=== PATIENT | male | born 1960 | race Caucasian/White ===

== ENCOUNTER 2016-07-31 08:39 | Inpatient (IN) | payer MEDICARE, OTHER ==
[2016-07-31] MEDS ORDERED: NITROGLYCERIN OINT 1 INCH/GM PACKET TOPICAL STA (08:45)
[2016-07-31] MEDS ORDERED: HEPARIN SODIUM,PORCINE 5,000 UNIT/ML 1 ML VIAL IV STA (08:45)
[2016-07-31] MEDS ORDERED: HEPARIN SODIUM,PORCINE/D5W PMX 25,000 UNIT in DEXTROSE/WATER 1 500ML.BAG IV STA (08:45)
--- NOTE | 2016-07-31 08:53 | ED ---
Chest Pain HPI - General Stated Complaint: Chest Pain Time Seen by Provider: 07/31/16 08:39 Source: patient, RN notes reviewed - History of Present Illness Initial Comments: This is a 56-year-old male with a history of cardiac disease and COPD/emphysema he states he had stents placed along time ago who had the onset this morning of a burning retrosternal chest pain or radiated to his jaw down his left arm. He states it was 7/10 in severity initially he was given nitroglycerin by EMS and did resolve the pain. Also he's had shortness of breath for about a week. He is still a smoker. We did have a long conversation regarding this. MD Complaint: chest pain, other - Related Data Home Medications Medication Instructions Recorded Confirmed Acetaminophen Tab [Tylenol] 325 mg PO DAILY PRN 09/04/15 07/31/16 Aspirin 650 mg PO DAILY PRN 07/31/16 07/31/16 Loratadine [Claritin] 10 mg PO DAILY 07/31/16 07/31/16 guaiFENesin SYRUP 100MG/5ML 300 mg PO DAILY PRN 07/31/16 07/31/16 [Robitussin] Allergies Allergy/AdvReac Type Severity Reaction Status Date / Time latex Allergy Itching Verified 07/31/16 09:31 morphine Allergy Anaphylaxis Verified 07/31/16 09:31 Review of Systems ROS Statement: Those systems with pertinent positive or pertinent negative responses have been documented in the HPI. ROS Other: All systems not noted in ROS Statement are negative. EKG Findings - EKG Results: EKG: interpreted by SMITA, sinus rhythm (Sinus rhythm with a rate of 75 NV interval 142 QRS duration 70 QT/QTC of 370/524 low-voltage criteria evidence a left anterior fascicular block.) Past Medical History Past Medical History: Coronary Artery Disease (CAD), Chest Pain / Angina, Diabetes Mellitus, Hyperlipidemia, Myocardial Infarction ([place]) Last Myocardial Infarction Date:: 2012 History of Any Multi-Drug Resistant Organisms: MRSA Date of last positivie culture/infection: 2012 MDRO Source:: right leg Past Surgical History: Heart Catheterization With Stent, Orthopedic Surgery Additional Past Surgical History / Comment(s): R foot sx Past Anesthesia/Blood Transfusion Reactions: No Reported Reaction Date of Last Stent Placement:: 2012 Past Psychological History: No Psychological Hx Reported Smoking Status: Current every day smoker Past Alcohol Use History: Occasional Past Drug Use History: Marijuana General Exam - General Exam Comments Initial Comments: This is a well-developed well-nourished awake alert oriented 3 male General appearance: alert, in no apparent distress Head exam: Present: atraumatic, normocephalic, normal inspection Eye exam: Present: normal appearance, PERRL, EOMI. Absent: scleral icterus, conjunctival injection, periorbital swelling ENT exam: Present: normal exam, mucous membranes moist Neck exam: Present: normal inspection. Absent: tenderness, meningismus, lymphadenopathy Respiratory exam: Present: decreased breath sounds. Absent: respiratory distress, wheezes, rales, rhonchi, stridor Cardiovascular Exam: Present: regular rate, normal rhythm, normal heart sounds. Absent: systolic murmur, diastolic murmur, rubs, gallop, clicks GI/Abdominal exam: Present: soft, normal bowel sounds. Absent: distended, tenderness, guarding, rebound, rigid Extremities exam: Present: normal inspection, full ROM, normal capillary refill. Absent: tenderness, pedal edema, joint swelling, calf tenderness Back exam: Present: normal inspection Neurological exam: Present: alert, oriented X3, CN II-XII intact Psychiatric exam: Present: normal affect, normal mood Skin exam: Present: warm, dry, intact, normal color. Absent: rash Course Vital Signs 07/31/16 07/31/16 07/31/16 08:50 09:29 09:40 Temperature 97.6 F Pulse Rate 78 69 Respiratory 16 18 18 Rate Blood Pressure 157/89 139/77 O2 Sat by Pulse 96 93 L Oximetry 07/31/16 11:12 Temperature Pulse Rate 78 Respiratory 16 Rate Blood Pressure 148/90 O2 Sat by Pulse 96 Oximetry Chest Pain MDM - MDM X-ray was unremarkable I did discuss findings with the patient he's been pain- free since arrival. He will be admitted for evaluation for unstable angina does have elevation of his troponin. Critical Care Time Critical Care Time: Yes Critical Care Time: 31 minutes of critical care time which includes initial presentation with history physical lab and x-rays reevaluation the patient to responsive therapy. Discussed with the admitting physician documentation of the above admission orders. Disposition Clinical Impression: Unstable angina pectoris, Chest pain, Elevated troponin Disposition: ADMITTED IP TO THIS [facility] Condition: Stable
[2016-07-31 09:27] LABS: Basophils # (A) 0.1 k/uL (0-0.2); Basophils % (A) 1 %; CH 28.7; CHCM 33.5; Eosinophils # (A) 0.1 k/uL (0-0.7); Eosinophils % (A) 1 %; HCT 49.6 % (39.0-53.0); HDW 2.47; Luc # (Auto) 0.09; Luc % (Auto) 1; Lymphocytes # (A) 3.1 k/uL (1.0-4.8); Lymphocytes % (A) 21 %; MCH 27.7 pg (25.0-35.0); MCHC 32.2 g/dL (31.0-37.0); MCV 85.9 fL (80.0-100.0); Mean Platelet Volume 10.5; Monocytes % (A) 7 %; Neutrophils # (A) 10.4 k/uL (1.3-7.7); Neutrophils % (A) 70 %; RBC 5.77 m/uL (4.30-5.90); RDW 12.9 % (11.5-15.5); WBC 14.7 k/uL (3.8-10.6); WBC (Perox) 14.55
[2016-07-31 09:36] LABS: ALT 36 U/L (21-72); AST 27 U/L (17-59); Alkaline Phosphatase 89 U/L (38-126); Anion Gap 12 mmol/L; Blood Urea Nitrogen 13 mg/dL (9-20); Calcium 8.8 mg/dL (8.4-10.2); Carbon Dioxide 20 mmol/L (22-30); Chloride 108 mmol/L (98-107); Glucose 138 mg/dL (74-99); Magnesium 1.8 mg/dL (1.6-2.3); Non-African American GFR(MDRD) >60 (>60 ml/min/1.73 sqM); Sodium 140 mmol/L (137-145); Total Bilirubin 0.8 mg/dL (0.2-1.3); Total Protein 6.7 g/dL (6.3-8.2)
[2016-07-31 09:39] LABS: Potassium 5.3 mmol/L (3.5-5.1)
--- NOTE | 2016-07-31 09:40 | XR ---
EXAMINATION TYPE: XR chest 2V DATE OF EXAM: 07/31/2016 9:23 AM COMPARISON: Prior chest x-ray 27 August 2015 HISTORY: Chest pain, coronary artery disease TECHNIQUE: Frontal and lateral views of the chest are obtained. FINDINGS: There is no focal air space opacity, pleural effusion, or pneumothorax seen. The cardiac silhouette size is within normal limits. There are overlying cardiac leads. Dominant lung volumes hood ggest underlying COPD. Minimal strand-like densities at the lung bases are present. The osseous struc tures are intact. IMPRESSION: There may be some basilar atelectasis or scarring. Follow-up as indicated.
[2016-07-31 10:03] LABS: Creatine Kinase MB 2.2 ng/mL (0.0-2.4)
[2016-07-31] MEDS: HEPARIN SODIUM,PORCINE/D5W PMX 25,000 UNIT in DEXTROSE/WATER 1 500ML.BAG IV SCH (10:07)
[2016-07-31 10:31] LABS: Troponin I 0.038 ng/mL (0.000-0.034)
[2016-07-31 10:40] LABS: INR 1.1 (<1.1); Prothrombin Time 10.8 sec (9.0-12.0)
[2016-07-31 10:41] LABS: Partial Thromboplastin Time 21.6 sec (22.0-30.0)
[2016-07-31] MEDS ORDERED: NITROGLYCERIN SL TABS 0.4 MG TAB SUBLINGUAL PRN (11:46)
[2016-07-31] MEDS ORDERED: ACETAMINOPHEN TAB 325 MG TAB PO PRN (11:48)
[2016-07-31 15:47] LABS: Creatine Kinase MB 2.4 ng/mL (0.0-2.4)
[2016-07-31 16:02] LABS: Troponin I 0.095 ng/mL (0.000-0.034)
[2016-07-31] MEDS: NITROGLYCERIN OINT 1 INCH/GM PACKET TOPICAL SCH ×2 (17:34→23:58)
[2016-07-31] MEDS: HEPARIN SODIUM,PORCINE 5,000 UNIT/ML 1 ML VIAL IV PRN (19:19)
[2016-07-31 22:13] LABS: Creatine Kinase MB 2.4 ng/mL (0.0-2.4)
[2016-07-31 22:25] LABS: Troponin I 0.116 ng/mL (0.000-0.034)
[2016-07-31] MEDS: NICOTINE 21MG/24HR PATCH TRANSDERM SCH (23:48)
[2016-07-31] MEDS: METOPROLOL TARTRATE 12.5 MG TAB PO SCH (23:58)
[2016-08-01] MEDS: HEPARIN SODIUM,PORCINE 5,000 UNIT/ML 1 ML VIAL IV PRN ×2 (02:04→09:05)
[2016-08-01] MEDS: HEPARIN SODIUM,PORCINE/D5W PMX 25,000 UNIT in DEXTROSE/WATER 1 500ML.BAG IV SCH (05:20)
[2016-08-01] MEDS: NITROGLYCERIN OINT 1 INCH/GM PACKET TOPICAL SCH ×2 (06:08→19:34)
[2016-08-01] MEDS: IPRATROPIUM-ALBUTEROL 3 ML NEB INHALATION SCH ×4 (08:25→20:22)
[2016-08-01 08:50] LABS: Cholesterol 221 mg/dL (<200); HDL Cholesterol 35 mg/dL (40-60); Triglycerides 174 mg/dL (<150)
[2016-08-01] MEDS ORDERED: ASPIRIN 325 MG TAB PO SCH (09:00)
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
[2016-08-01 09:36] LABS: Hemoglobin A1C 6.9 % (4.2-6.1)
[2016-08-01] MEDS: NICOTINE 21MG/24HR PATCH TRANSDERM SCH (09:36)
[2016-08-01] MEDS: LORATADINE 10 MG TAB PO SCH (09:55)
[2016-08-01] MEDS: ATORVASTATIN 80 MG TAB PO SCH (09:55)
[2016-08-01] MEDS ORDERED: NITROGLYCERIN SL TABS 0.4 MG TAB SUBLINGUAL PRN ×2 (10:05→12:18)
[2016-08-01] MEDS ORDERED: ASPIRIN 325 MG TAB PO STA (10:05)
[2016-08-01] MEDS ORDERED: ALPRAZolam 0.5 MG TAB PO PRN (10:05)
[2016-08-01] MEDS ORDERED: SODIUM CHLORIDE 0.9% 1,000 ML in EMPTY BAG 1 BAG IV ONE (10:05)
[2016-08-01] MEDS ORDERED: ATORVASTATIN 80 MG TAB PO STA (10:05)
[2016-08-01] MEDS ORDERED: ALPRAZolam 0.25 MG TAB PO PRN (10:05)
--- NOTE | 2016-08-01 10:20 | HP ---
DATE OF ADMISSION: 07/31/2016 PRESENTING COMPLAINT: Chest pain. HISTORY OF PRESENTING COMPLAINT: This is a 56-year-old patient of Dr. King, known history of coronary artery disease with stent in 2013. Patient's other chronic stable medical conditions include hypertension, diabetes, hyperlipidemia, COPD, GERD, osteoarthritis. Patient has sleep apnea, does not use a CPAP machine. Patient this morning started off with chest pressure in the center of the chest going down the left neck and arm, was not dizzy. Patient broke out in a cold sweat, really felt tired. Patient's pain lasted for over 90 minutes and nitroglycerin was given, after which he felt better. Troponin started to creep up. Patient admitted with IV heparin on board. REVIEW OF SYSTEMS: CONSTITUTIONAL: Tired. HEENT: None. RESPIRATORY: Occasional wheezing. CARDIOVASCULAR: As above. GASTROINTESTINAL: Heartburn. GENITOURINARY: None. MUSCULOSKELETAL: Aches and pains in the joints. DERMATOLOGICAL: None. HEMATOLOGICAL: None. LYMPHATICS: None. PSYCHIATRY: None. NEUROLOGICAL: None. Past medical history of coronary disease with stent in 2013, hyperlipidemia, diabetes, hypertension, COPD, GERD, osteoarthritis, obstructive sleep apnea, cluster headaches, chronic back pain, migraines. PAST SURGICAL HISTORY: Cardiac cath with stent. Patient had stents to the RCA and LAD. Right heel and ankle surgery, fracture unknown bone from right hip. SOCIAL HISTORY: The patient lives with 3 children. Patient smokes close to a pack a day since age 5. That is about 50 years. Drinks alcohol daily less, but less than 14 drinks per week. Patient does medical marijuana occasionally. FAMILY HISTORY: Father of a heart attack at age of 41. HOME MEDICATIONS: 1. Claritin 10 mg a day. 2. Aspirin 650 mg p.o. daily p.r.n. 3. Tylenol. ALLERGIES TO LATEX, AND MORPHINE. On examination, temperature 97.6, pulse 98, respirations 16, blood pressure 157/ 89, pulse ox 96% on room air. GENERAL APPEARANCE: Morbidly obese; BMI of 41.5, sitting up in a chair. EYES: Pupils equal. Conjunctivae normal. HEENT: Oral cavity normal. NECK: JVP not raised. Mass not palpable. RESPIRATORY: Effort normal. LUNGS: Diminished breath sounds. CARDIOVASCULAR: First and second sounds normal. No edema. ABDOMEN: Some, nontender. Liver, spleen not palpable. LYMPHATIC: No lymph nodes palpable in neck or axillae. PSYCHIATRY: Alert and oriented x3. Mood and affect normal. NEUROLOGICAL: Pupils are equal. Cranial nerves intact. Power and sensation grossly intact. INVESTIGATIONS: White count 14.7, hemoglobin 16, platelets 72. Potassium 5.3, BUN 30, creatinine 0.71. Troponin 0.038, 0.095, 0.116. Chest x-ray: Some atelectasis reported. EKG: Low-voltage nonspecific findings. ASSESSMENT: 1. Acute non-Q-wave myocardial infarction in a patient with known coronary artery disease, a rather classic presentation and a rise in troponin in a patient who continues to smoke with a prior history of coronary artery disease. 2. Known coronary artery disease with prior stents in 2013. 3. Essential hypertension, uncontrolled. 4. Hyperlipidemia. 5. Chronic obstructive pulmonary disease in a current smoker. 6. Chronic nicotine dependence. Patient is a smoker. 7. Gastroesophageal reflux disease. 8. Primary osteoarthritis of multiple joints, including lower back. 9. Obstructive sleep apnea. The patient does not use a continuous positive airway pressure machine. PLAN: Patient continued on aspirin, IV heparin, a small dose of beta eli, including nitro paste. Nebulized bronchodilators given. The patient advised against smoking, given a given a nicotine patch. Patient should see a dietitian too for the same. Will check patient's lipid profile in the morning and start the patient on Lipitor. Care was discussed with the patient and Cardiology is consulted.
[2016-08-01] MEDS ORDERED: diphenhydrAMINE 50 MG/ML 1 ML VIAL ONE (10:32)
[2016-08-01] MEDS ORDERED: MIDAZOLAM 2 MG/2 ML VIAL ONE (10:32)
[2016-08-01] MEDS ORDERED: LIDOCAINE 2% INJ 20 MG/ML (20 ML MDV) ONE (10:39)
[2016-08-01] MEDS ORDERED: SODIUM CHLORIDE 0.9% (PF) 10 ML VIAL ONE (10:39)
[2016-08-01] MEDS ORDERED: VERAPAMIL 2.5 MG/ML 2 ML AMP ONE (10:39)
[2016-08-01] MEDS ORDERED: SODIUM CHLORIDE 0.9% 1,000 ML IV ONE (10:45)
[2016-08-01] MEDS ORDERED: SODIUM CHLORIDE 0.9% 500 ML IV ONE (10:45)
[2016-08-01] MEDS ORDERED: HEPARIN SODIUM 1,000 UNIT/ML VIAL ONE (11:04)
[2016-08-01] MEDS ORDERED: diphenhydrAMINE 50 MG/ML 1 ML VIAL IVP ONE (11:11)
[2016-08-01] MEDS: MIDAZOLAM 2 MG/2 ML VIAL IV ONE ×2 (11:11→11:29)
[2016-08-01] MEDS ORDERED: NITROGLYCERIN SL TABS 0.4 MG TAB SUBLINGUAL ONE ×4 (11:12→11:18)
[2016-08-01] MEDS ORDERED: LIDOCAINE 2% INJ 20 MG/ML SQ ONE ×2 (11:15→11:28)
--- NOTE | 2016-08-01 11:23 | ECHOF ---
Referral Reason:nonstemi MEASUREMENTS -------- HEIGHT: 170.2 cm WEIGHT: 123.4 kg BP: 130/73 RVIDd: 3.2 cm (< 3.3) IVSd: 1.5 cm (0.6 - 1.1) LVIDd: 4.3 cm (3.9 - 5.3) LVPWd: 1.5 cm (0.6 - 1.1) IVSs: 2.1 cm LVIDs: 3.3 cm LVPWs: 2.1 cm LA Diam: 3.7 cm (2.7 - 3.8) LAESV Index (A-L): 22.36 ml/m Ao Diam: 3.3 cm (2.0 - 3.7) AV Cusp: 2.0 cm (1.5 - 2.6) MV EXCURSION: 14.924 mm (> 18.000) MV EF SLOPE: 81 mm/s (70 - 150) EPSS: 1.6 cm MV E Randy: 0.97 m/s MV DecT: 172 ms MV A Randy: 1.02 m/s MV E/A Ratio: 0.95 FINDINGS -------- Sinus rhythm with extra systolic beats. This was a technically adequate study. The left ventricular size is normal. There is moderate concentric left ventricular hypertrophy. Overall left ventricular systolic function is mild-moderately impaired with, an EF between 40 - 45 %. Basal lateral LV wall motion is hypokinetic. Basal inferior LV wall motion is hypokinetic. Mid lateral LV wall motion is hypokinetic. Mid inferior LV wall motion is hypokinetic. The right ventricle is normal in size and function. The left atrium is normal in size. Normal LA size by volume 22+/-6 ml/m2. The right atrium is normal in size. 1.5mg of Definity was utilized for enhancement of images The aortic valve was not well visualized. Normal appearing mitral valve. No mitral regurgitation. The tricuspid valve appears structurally normal. No regurgitation noted The pulmonic valve was not well visualized. The aortic root size is normal. There is no pericardial effusion. CONCLUSIONS -------- 1. Sinus rhythm with extra systolic beats. 2. The right ventricle is normal in size and function. 3. The left atrium is normal in size. 4. The right atrium is normal in size. 5. 1.5mg of Definity was utilized for enhancement of images 6. The aortic valve was not well visualized. 7. Normal appearing mitral valve. 8. The tricuspid valve appears structurally normal. 9. The pulmonic valve was not well visualized. 10. The aortic root size is normal. 11. There is no pericardial effusion. 12. This was a technically adequate study. 13. The left ventricular size is normal. 14. There is moderate concentric left ventricular hypertrophy. 15. Overall left ventricular systolic function is mild-moderately impaired with, an EF between 40 - 45 %. 16. Basal lateral LV wall motion is hypokinetic. 17. Basal inferior LV wall motion is hypokinetic. 18. Mid lateral LV wall motion is hypokinetic. 19. Mid inferior LV wall motion is hypokinetic. C [employer] DEVELOPER: Mayela Rowe RDCS
[2016-08-01] MEDS ORDERED: BIVALIRUDIN BOLUS 250 MG/50 ML IV ONE (11:46)
[2016-08-01] MEDS ORDERED: BIVALIRUDIN 250 MG in SODIUM CHLORIDE 0.9% 50 ML IV ONE (11:48)
[2016-08-01] MEDS ORDERED: PRASUGREL 10 MG TAB ONE (11:51)
[2016-08-01] MEDS ORDERED: NITROGLYCERIN 1000MCG/10ML SYRINGE INTRACORON ONE (11:55)
[2016-08-01] MEDS ORDERED: IOHEXOL 350 MG/ML 100 ML BOTTLE INTRATHECA ONE ×2 (11:56)
[2016-08-01] MEDS ORDERED: HYDROmorphone 2 MG/ML 1 ML SYRINGE ONE (11:58)
[2016-08-01] MEDS ORDERED: HYDROmorphone 2 MG/ML 1 ML SYRINGE IV ONE (12:01)
[2016-08-01] MEDS ORDERED: PRASUGREL 10 MG TAB PO ONE (12:02)
[2016-08-01] MEDS ORDERED: MAG HYDROX/AL HYDROX/SIMETH 30 ML CUP PO PRN (12:18)
[2016-08-01] MEDS ORDERED: ZOLPIDEM 5 MG TAB PO PRN (12:18)
[2016-08-01] MEDS ORDERED: ATROPINE SULFATE 0.1 MG/ML 10ML SYRINGE IV PRN (12:18)
[2016-08-01] MEDS ORDERED: RX INFO: IV CONTRAST WAS GIVEN 1 EACH MISC MISCELLANE PRN (12:18)
[2016-08-01] MEDS: SODIUM CHLORIDE 0.9% 1,000 ML IV SCH ×2 (12:51→23:07)
--- NOTE | 2016-08-01 17:01 | PN ---
DATE OF SERVICE: 08/01/2016 PRESENTING COMPLAINT: Chest pain. INTERVAL HISTORY: This is a patient who presented with acute non-Q-wave MD with known coronary artery disease. Patient did come for a cardiac catheterization today. ( ) stent was carried out. I do not have a full dictation. The patient lying in bed, stable. Comfortable. Review of systems done for constitutional, cardiovascular, GI, pulmonary. Current medications are reviewed. On examination, afebrile, pulse 70, respirations 16, blood pressure 140/88, pulse ox 96% on 2 liters. GENERAL APPEARANCE: Lying in bed, not in distress. EYES: Pupils equal. Conjunctivae normal. NECK: JVD not raised. Mass not palpable. RESPIRATORY: Effort normal. LUNGS: Diminished breath sounds. CARDIOVASCULAR: First and second sounds normal. No edema. ABDOMEN: Soft. Liver and spleen not palpable. Psychiatric alert and oriented x3. Mood, affect normal. INVESTIGATIONS: LDL 151, Troponin 0.095, 0.116. ASSESSMENT: 1. Acute non-Q-wave myocardial infarction in a patient with known coronary artery disease, cardiac catheterization and stent this morning details and dictation pending. 2. Coronary artery disease with prior stent in 2013. 3. Essential hypertension, uncontrolled. 4. Hyperlipidemia. 5. Chronic obstructive pulmonary disease in a current smoker. 6. Hyperlipidemia uncontrolled. 7. Chronic nicotine dependence. Patient is a smoker. 8. Gastroesophageal reflux disease. 9. Primary osteoarthritis in multiple joints, including lower back. 10. Obstructive sleep apnea. The patient does not use CPAP. PLAN: Care was discussed with the patient again, reiterated for smoking cessation. Patient already put on Lipitor. Follow.
[2016-08-01] MEDS: METOPROLOL TARTRATE 12.5 MG TAB PO SCH (19:34)
--- NOTE | 2016-08-01 20:15 | CC ---
DATE OF SERVICE: 08/01/2016. PROCEDURE: Left heart catheterization and coronary angiography. PERFORMED BY: Dr. Jarrett Hanna. CLINICAL INFORMATION: Mr. Isaak York is a 56-year-old gentleman with a known history of type 2 diabetes, hypertension, hyperlipidemia who underwent stenting of a proximal and mid LAD performed by me in 2013. Because of symptoms of angina, he presented to the hospital, had a mild troponin elevation, was advised cardiac catheterization after evaluation by Dr. Barnhart. PROCEDURE NOTE: Under local anesthesia and strict aseptic precautions, I attempted to obtain access from the right radial but the pulse was somewhat deep and I had difficulty. Therefore I switched over to the right femoral approach. A 6 Pashto introducer was placed in the right femoral artery under strict aseptic precautions and local anesthesia. A standard Braden catheters were used to perform coronary angiography and a pigtail catheter was used to check pressures but LV gram was not performed. This patient is known to have total occlusion of circumflex and previously stented proximal right coronary artery and also proximal and mid LAD. Following the coronary angiography, I proceeded with intervention of the RCA, which had a restenotic lesion as well as lesion beyond the stented segment. CARDIAC CATHETERIZATION FINDINGS: The left ventricle end-diastolic pressure was 21 mmHg without any gradient across the aortic valve. CORONARY ANGIOGRAPHIC FINDINGS: RIGHT CORONARY ARTERY: Technically a very dominant vessel that was stented in the past at [facility]. This patient now has a restenosis in the distal aspect of the stent of 80% and also beyond it, there is another area stenosis of another 80%. The stenosis therefore starts within the stent and extends beyond the stent distally. The RCA is very dominant bifurcates into a large PLV and PDA both of which have minor irregularities. There is an acute marginal which is highly diseased and has intrinsic lesion and it comes from the distal end of the lesion. This vessel is highly diseased. LEFT MAIN CORONARY ARTERY: This is a short, patent, disease-free vessel that bifurcates into LAD and circumflex. LEFT ANTERIOR DESCENDING CORONARY ARTERY: Good caliber vessel extends along the anterior wall. The stented segment before and after the diagonal is widely patent and the diagonal is free of significant disease. LAD extends all the way to the apex supplying a sizable amount of myocardium. LEFT POSTERIOR CIRCUMFLEX CORONARY ARTERY CORONARY ARTERY: Technically nondominant vessel totally occluded in the proximal portion with limited antegrade flow. Angiographic appearance is similar to the previous study from 2014. LEFT VENTRICULOGRAM: This was not performed. FINAL IMPRESSION: This patient has a total occlusion of circumflex, which is old and now has a recent fresh restenotic lesion within the RCA, which is a culprit lesion. LAD that was stented in 2014 is widely patent. Filling pressures are elevated. LV gram was not performed. RECOMMENDATIONS: Recommend intervention of the RCA and proceeded to perform this in the same setting.
--- NOTE | 2016-08-01 20:23 | PTCA ---
DATE OF SERVICE: 08/01/2016 PROCEDURE: PTCA and stenting of proximal right coronary artery. PERFORMED BY: Dr. Jarrett Hanna DESCRIPTION OF PROCEDURE: The existing 6 Polish introducer in the right femoral artery was used to perform the procedure. A Whisper wire was used to cross the lesion. A standard right Braden guide catheter was used to cannulate the RCA. Without predilatation, a 3.25 caliber 18 mm long Xience stent was deployed at 14 atmospheres. Patient had chest pain and inferior ST elevation. The chest pain persisted. There was a transient occlusion of the side branch, which was an acute marginal branch, which was highly diseased. However, after nicardipine and nitroglycerin, there was good flow. EKG normalized and patient's chest pain resolved almost completely and he was sent to the room in stable condition. FINDINGS: Discussed with the patient and his son. I expect that he will be discharged tomorrow if he remains stable. Excellent angiographic result was achieved without complication. I used an Angioseal to secure hemostasis and he was sent to the room in stable condition.
--- NOTE | 2016-08-01 20:26 | LTR ---
August 01, 2016 RE: Isaak York Dear Dr. King: Thank you for the opportunity to participate in the care of Mr. York. I am pleased to report to you that he had a good result of a restenotic lesion in the proximal RCA. A drug-eluting stent was used. His previously stented LAD is patent and circumflex is a chronic total occlusion. Continued medical therapy with aspirin and Effient or Plavix should be done without interruption for at least one year. Thank you for the referral and please call for questions. With kindest regards, Sincerely, PAIGE CHUNG MD
[2016-08-01] MEDS: METOPROLOL TARTRATE 25 MG TAB PO SCH (20:44)
[2016-08-01 22:50] VITALS: TEMP 97.6
[2016-08-02 07:39] LABS: Basophils # (A) 0.1 k/uL (0-0.2); Basophils % (A) 1 %; CH 28.4; CHCM 32.9; Eosinophils # (A) 0.1 k/uL (0-0.7); Eosinophils % (A) 1 %; HCT 49.5 % (39.0-53.0); HGB 16.5 gm/dL (13.0-17.5); Luc # (Auto) 0.26; Luc % (Auto) 2; Lymphocytes # (A) 3.4 k/uL (1.0-4.8); Lymphocytes % (A) 25 %; MCH 28.9 pg (25.0-35.0); MCHC 33.3 g/dL (31.0-37.0); MCV 86.7 fL (80.0-100.0); Mean Platelet Volume 7.8; Monocytes # (A) 0.8 k/uL (0-1.0); Monocytes % (A) 6 %; Neutrophils # (A) 9.3 k/uL (1.3-7.7); Neutrophils % (A) 67 %; RBC 5.71 m/uL (4.30-5.90); RDW 12.7 % (11.5-15.5); WBC 13.9 k/uL (3.8-10.6); WBC (Perox) 14.36
[2016-08-02 07:48] LABS: Anion Gap 11 mmol/L; Blood Urea Nitrogen 10 mg/dL (9-20); Calcium 9.2 mg/dL (8.4-10.2); Carbon Dioxide 28 mmol/L (22-30); Chloride 102 mmol/L (98-107); Glucose 105 mg/dL (74-99); Non-African American GFR(MDRD) >60 (>60 ml/min/1.73 sqM); Potassium 4.5 mmol/L (3.5-5.1); Sodium 141 mmol/L (137-145)
[2016-08-02] MEDS: IPRATROPIUM-ALBUTEROL 3 ML NEB INHALATION SCH ×2 (08:05→12:04)
[2016-08-02] MEDS: LORATADINE 10 MG TAB PO SCH (08:45)
[2016-08-02] MEDS: ATORVASTATIN 80 MG TAB PO SCH (08:45)
[2016-08-02] MEDS: METOPROLOL TARTRATE 25 MG TAB PO SCH (08:45)
[2016-08-02] MEDS ORDERED: ASPIRIN 81 MG CHEW PO SCH (09:00)
[2016-08-02] MEDS ORDERED: PRASUGREL 10 MG TAB PO SCH (09:00)
--- NOTE | 2016-08-02 11:17 | P.PN ---
Subjective Principal diagnosis: Chest pain This is a 56-year-old gentleman with known history of coronary artery disease, prior myocardial infarction and stent placements, hypertension, hyperlipidemia, nicotine dependence, COPD, and occasional marijuana use, he presents to the hospital with symptoms of midsternal chest pressure with radiation to the jaw and left axilla area.EKG on arrival shows a normal sinus rhythm with anterior ST-T wave changes. Repeat EKG this morning shows normal sinus rhythm with nonspecific anterior ST-T wave changes. Chest x-ray shows some basilar atelectasis or scarring. Laboratory data, WBC 14.7, potassium 5.3 , BUN 13, creatinine 0.7. Troponins 0.038, 0.09, 0.11. Patient was taken to the cardiac catheterization lab yesterday where he underwent angioplasty with stenting of the right coronary artery. EKG this morning showed normal sinus rhythm with no changes from post-PCI. Patient has been up ambulating in the hallway today without any difficulty, denies any further chest discomfort. Lab data reviewed and is within normal limits. Objective - Vital Signs Vital signs: Vital Signs Temp 97.6 F 08/02/16 08:50 Pulse 75 08/02/16 08:50 Resp 16 08/02/16 08:52 BP 131/83 08/02/16 08:50 Pulse Ox 93 L 08/02/16 08:50 Intake & Output 08/01/16 08/02/16 08/02/16 18:59 06:59 18:59 Intake Total 400 675 Balance 400 675 Weight 122.5 kg Intake: IV 675 Sodium Chloride 0.9% 1, 675 000 ml @ 75 mls/hr IV . [id number] [facility] Rx#:[id number] Oral 400 Other: Voiding Method Toilet Toilet Toilet # Voids 3 - Exam PHYSICAL EXAMINATION: HEENT: Head is atraumatic, normocephalic. Pupils equal, round. Neck is supple. There is no elevated jugular venous pressure. HEART EXAMINATION: Heart S1, S2 normal. No murmur or gallop heard. CHEST EXAMINATION: Lungs are clear to auscultation and precussion. No chest wall tenderness is noted on palpation or with deep breathing. ABDOMEN: Soft, obese, nontender. Bowel sounds are heard. No organomegaly noted. Right groin soft, no evidence of any hematoma. EXTREMITIES: 2+ peripheral pulses with no evidence of peripheral edema and no calf tenderness noted. NEUROLOGIC patient is awake, alert and oriented -3. . - Labs CBC & Chem 7: 08/02/16 06:34 08/02/16 06:34 Labs: Abnormal Lab Results - Last 24 Hours (Table) 08/02/16 08/02/16 Range/Units 06:34 06:34 WBC 13.9 H (3.8-10.6) k/uL Neutrophils # 9.3 H (1.3-7.7) k/uL Glucose 105 H (74-99) mg/dL Assessment and Plan Plan: Assessment and plan #1 chest pain, suggestive of acute coronary syndrome. Status post angioplasty with stenting of the RCA #3 hypertension #4 hyperlipidemia #5 nicotine dependence #6 COPD #7 occasional marijuana use #8 recent upper respiratory infection Plan From cardiology's perspective, patient may be able to be discharged home today. We will make him a follow-up appointment with Dr. Valentine Hanna in the office on August 08. Patient will be discharged home on aspirin 81 mg daily, Lipitor 80 mg daily, metoprolol tartrate 25 mg one tablet by mouth twice a day, Effient 10 mg daily, and sublingual nitroglycerin as needed for chest pain. Prescriptions 3 to the above medications have been provided. Patient has also been educated regarding the importance of taking his medications as well as nicotine cessation. DNP note has been reviewed, I agree with a documented findings and plan of care. Patient was seen and examined.
[2016-08-02 13:31] VITALS: BP 124/80; PULSE 70; RESP 12
--- NOTE | 2016-08-03 09:27 | DS ---
DATE OF ADMISSION: 07/31/2016 DATE OF DISCHARGE: 08/02/2016 FINAL DIAGNOSES: 1. Acute non-Q-wave myocardial infarction in a patient with known coronary artery disease. 2. Coronary artery disease with prior stent in 2013. 3. Essential hypertension, uncontrolled on presentation. 4. Hyperlipidemia, uncontrolled. 5. Chronic obstructive pulmonary disease in a current smoker. 6. Chronic nicotine dependence. Patient is a smoker. Patient counseled against smoking. 7. Gastroesophageal reflux disease. 8. Primary osteoarthritis in multiple joints including lower back. 9. Obstructive sleep apnea. The patient does not use CPAP. 10. Morbid obesity, body mass index 42.3. Patient to see a dietitian as an outpatient and follow with his family doctor. 11. Ischemic cardiomyopathy; ejection fraction 40% to 45%, from underlying coronary artery disease. PROCEDURE: Cardiac catheterization by Dr. Jarrett Hanna that showed total occlusion of the circumflex, which is old and restenotic lesion within the RCA. Intervention was carried out. Patient has LAD stent from 2013 that is widely patent. Patient's 2-D echocardiogram shows EF of 40% to 45%. Patient's LDL came back to be 151. HOSPITAL COURSE: This is a patient who presented with acute non-ST elevation myocardial infarction. Cardiac cath with intervention was done as above. On the day of discharge, the patient was counseled against smoking. On exam, lungs are clear. CARDIOVASCULAR: First and second sounds normal. CONSULTATIONS: Dr. Barnhart from cardiology and Dr. Jarrett Hanna from interventional cardiology DISCHARGE MEDICATIONS: 1. Tylenol 325 p.o. daily p.r.n. 2. Claritin 10 mg p.o. daily. 3. Aspirin 81 mg daily. 4. Lipitor 80 mg p.o. daily. 5. Atrovent HFA 2 puffs q.i.d. 6. Lopressor 25 mg p.o. b.i.d. 7. Nicotine 21 mg patch. 8. Nitrostat 0.4 sublingual q.5 p.r.n. 9. Effient 10 mg p.o. daily. Follow up with Dr. Jarrett Hanna on 08/08/16 and follow up with Dr. King on 08/06/16.
== END 2016-08-02 13:51 | disposition home or self-care (01) | DRG 247 ==
LOC: EC 08:39 → 6SEL 11:48 → OBSVTOIN 08-01 15:01
PROVIDERS: ADMIT Hospitalist; ATTEND Hospitalist
PROC: B2111ZZ Fluoroscopy of Multiple Coronary Arteries using Low Osmolar Contrast (ICD-10-PCS; 2016-08-01)
PROC: 027034Z Dilation of Coronary Artery, One Artery with Drug-eluting Intraluminal Device, Percutaneous Approach (ICD-10-PCS; principal; 2016-08-01 10:40)
PROC: 4A023N7 Measurement of Cardiac Sampling and Pressure, Left Heart, Percutaneous Approach (ICD-10-PCS; 2016-08-01 10:40)
DX: I21.4 Non-ST elevation (NSTEMI) myocardial infarction (principal); J98.11 Atelectasis; I10 Essential (primary) hypertension; E11.9 Type 2 diabetes mellitus without complications; E66.01 Morbid (severe) obesity due to excess calories; E78.5 Hyperlipidemia, unspecified; F12.90 Cannabis use, unspecified, uncomplicated; F17.210 Nicotine dependence, cigarettes, uncomplicated; G47.33 Obstructive sleep apnea (adult) (pediatric); I25.2 Old myocardial infarction; I25.5 Ischemic cardiomyopathy; J44.9 Chronic obstructive pulmonary disease, unspecified; K21.9 Gastro-esophageal reflux disease without esophagitis; M15.9 Polyosteoarthritis, unspecified; G43.909 Migraine, unspecified, not intractable, without status migrainosus; G89.29 Other chronic pain; M54.9 Dorsalgia, unspecified; I25.10 Atherosclerotic heart disease of native coronary artery without angina pectoris; Z68.41 Body mass index [BMI] 40.0-44.9, adult; Z91.040 Latex allergy status; Z88.5 Allergy status to narcotic agent; Z79.82 Long term (current) use of aspirin; Z79.899 Other long term (current) drug therapy; Z95.5 Presence of coronary angioplasty implant and graft; Z82.49 Family history of ischemic heart disease and other diseases of the circulatory system; Z86.14 Personal history of Methicillin resistant Staphylococcus aureus infection
CPT/HCPCS: 36415; 71020; 80048; 80053; 80061; 82550; 82553; 83036; 83735; 83880; 84484; 85025; 85610; 85730; 93005; 93306; 93458; 94640; 96365; 96366; 96376; 99291

== ENCOUNTER 2016-12-20 19:23 | Emergency (ER) | payer MEDICARE, OTHER ==
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
[2016-12-20 21:31] VITALS: BP 133/77; PULSE 78; RESP 18; TEMP 96.6
== END 2016-12-20 21:36 | disposition home or self-care (01) ==
LOC: EC 19:23
DX: S61.012A Laceration without foreign body of left thumb without damage to nail, initial encounter (principal); F17.200 Nicotine dependence, unspecified, uncomplicated; Z79.899 Other long term (current) drug therapy; Z91.040 Latex allergy status; Z88.5 Allergy status to narcotic agent; W45.8XXA Other foreign body or object entering through skin, initial encounter
CPT/HCPCS: 12001; 99282

== ENCOUNTER 2017-12-21 13:53 | Emergency (ER) | payer MEDICARE, OTHER ==
[2017-12-21 14:00] VITALS: RESP 18
[2017-12-21 14:20] LABS: Basophils # (A) 0.1 k/uL (0-0.2); Basophils % (A) 1 %; Eosinophils # (A) 0.2 k/uL (0-0.7); Eosinophils % (A) 1 %; HCT 49.6 % (39.0-53.0); HGB 16.3 gm/dL (13.0-17.5); Lymphocytes # (A) 4.5 k/uL (1.0-4.8); Lymphocytes % (A) 35 %; MCH 28.2 pg (25.0-35.0); MCHC 32.8 g/dL (31.0-37.0); MCV 85.9 fL (80.0-100.0); Mean Platelet Volume 8.5; Monocytes # (A) 0.9 k/uL (0-1.0); Monocytes % (A) 7 %; Neutrophils # (A) 6.8 k/uL (1.3-7.7); Neutrophils % (A) 54 %; Platelet Count 181 k/uL (150-450); RBC 5.77 m/uL (4.30-5.90); RDW 14.1 % (11.5-15.5); WBC 12.6 k/uL (3.8-10.6)
[2017-12-21 14:30] LABS: Partial Thromboplastin Time 22.3 sec (22.0-30.0); Prothrombin Time 10.2 sec (9.0-12.0)
[2017-12-21 14:33] LABS: ALT 44 U/L (21-72); AST 21 U/L (17-59); Albumin 3.9 g/dL (3.5-5.0); Alkaline Phosphatase 59 U/L (38-126); Anion Gap 10 mmol/L; Blood Urea Nitrogen 14 mg/dL (9-20); Calcium 9.2 mg/dL (8.4-10.2); Carbon Dioxide 22 mmol/L (22-30); Chloride 106 mmol/L (98-107); Glucose 105 mg/dL (74-99); Magnesium 1.9 mg/dL (1.6-2.3); Potassium 4.7 mmol/L (3.5-5.1); Sodium 138 mmol/L (137-145); Total Bilirubin 0.4 mg/dL (0.2-1.3); Total Protein 6.4 g/dL (6.3-8.2)
[2017-12-21 14:41] LABS: Creatine Kinase 80 U/L (55-170)
[2017-12-21 14:54] LABS: Troponin I <0.012 ng/mL (0.000-0.034)
--- NOTE | 2017-12-21 14:55 | XR ---
EXAMINATION TYPE: XR chest 2V DATE OF EXAM: 12/21/2017 COMPARISON: 07/05/2017 HISTORY: Chest pain TECHNIQUE: Frontal and lateral views of the chest are obtained. FINDINGS: There is no heart failure nor confluent pneumonic infiltrate. Heart size is normal. There are chest leads. Thoracic aorta is atheromatous. There is no pleural effusion. There is mild spurring in the thoracic spine. IMPRESSION: No active cardiopulmonary disease. No change.
[2017-12-21] MEDS ORDERED: ASPIRIN 81 MG PO STA (15:06)
[2017-12-21] MEDS ORDERED: LISINOPRIL 10 MG TAB PO STA (15:07)
[2017-12-21] MEDS ORDERED: CLOPIDOGREL 75 MG TAB PO STA (15:07)
[2017-12-21 15:28] VITALS: BP 156/85; PULSE 67
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
[2017-12-21 15:58] VITALS: TEMP 98.4
[2017-12-21] MEDS ORDERED: ATORVASTATIN 80 MG TAB PO SCH (21:00)
[2017-12-22] MEDS ORDERED: ASPIRIN 81 MG PO SCH (09:00)
[2017-12-22] MEDS ORDERED: CLOPIDOGREL 75 MG TAB PO SCH (09:00)
[2017-12-22] MEDS ORDERED: LISINOPRIL 10 MG TAB PO SCH (09:00)
== END 2017-12-21 15:56 | disposition home or self-care (01) ==
LOC: EC 13:53
DX: I25.10 Atherosclerotic heart disease of native coronary artery without angina pectoris (principal); R14.0 Abdominal distension (gaseous); E66.9 Obesity, unspecified; M79.602 Pain in left arm; R00.2 Palpitations; Z87.891 Personal history of nicotine dependence; Z88.5 Allergy status to narcotic agent; Z91.040 Latex allergy status; Z91.09 Other allergy status, other than to drugs and biological substances; Z86.14 Personal history of Methicillin resistant Staphylococcus aureus infection; Z95.5 Presence of coronary angioplasty implant and graft; Z82.49 Family history of ischemic heart disease and other diseases of the circulatory system; Z68.37 Body mass index [BMI] 37.0-37.9, adult
CPT/HCPCS: 36415; 71046; 80053; 82550; 82553; 83735; 84484; 85025; 85610; 85730; 93005; 99285

== ENCOUNTER 2018-03-09 15:52 | Emergency (ER) | payer MEDICARE, OTHER ==
[2018-03-09 16:01] VITALS: BP 129/77; PULSE 93; RESP 16; TEMP 97.8
[2018-03-09] MEDS ORDERED: DIPH,PERTUS(ACELL)TETVAC-LF 0.5 ML VIAL IM ONE (16:07)
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
--- NOTE | 2018-03-09 16:24 | XR ---
EXAMINATION TYPE: XR shoulder complete RT DATE OF EXAM: 03/09/2018 COMPARISON: NONE HISTORY: Shoulder pain TECHNIQUE: 3 views FINDINGS: I see no fracture nor dislocation. Joint spaces are normal. There are no erosions. IMPRESSION: Negative right shoulder exam.
== END 2018-03-09 16:45 | disposition home or self-care (01) ==
LOC: EC 15:52
DX: S46.001A Unspecified injury of muscle(s) and tendon(s) of the rotator cuff of right shoulder, initial encounter (principal); S00.211A Abrasion of right eyelid and periocular area, initial encounter; S00.11XA Contusion of right eyelid and periocular area, initial encounter; F17.200 Nicotine dependence, unspecified, uncomplicated; Z23 Encounter for immunization; Z86.14 Personal history of Methicillin resistant Staphylococcus aureus infection; Z98.890 Other specified postprocedural states; Z95.1 Presence of aortocoronary bypass graft; Z95.5 Presence of coronary angioplasty implant and graft; Z88.5 Allergy status to narcotic agent; Z91.040 Latex allergy status; Z91.048 Other nonmedicinal substance allergy status; V18.4XXA Pedal cycle driver injured in noncollision transport accident in traffic accident, initial encounter; Y93.55 Activity, bike riding
CPT/HCPCS: 90471; 90715; 99283

== ENCOUNTER 2018-09-09 11:33 | Observation (INO) | payer MEDICARE ==
[2018-09-09] MEDS ORDERED: ASPIRIN 81 MG PO STA (11:49)
[2018-09-09] MEDS ORDERED: NITROGLYCERIN OINT 1 INCH/GM PACKET TOPICAL STA (11:49)
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
--- NOTE | 2018-09-09 12:37 | XR ---
EXAMINATION TYPE: XR chest 2V DATE OF EXAM: 09/09/2018 COMPARISON: 12/21/2017 HISTORY: 58-year-old male with chest pain TECHNIQUE: PA and lateral views FINDINGS: Heart normal size. Atherosclerotic arch calcifications. Diffuse interstitial prominence with more con fluent patchy opacity along the left heart margin. No pleural effusion. IMPRESSION: 1. Some increased interstitial densities likely in part chronic. Correlate for possible bronchitis, a sthma, atypical pneumonias, or interstitial pneumonitis. 2. Opacity is more confluent along the left heart margin and could represent a developing infiltrate or atelectasis.
[2018-09-09 12:53] LABS: Basophils # (A) 0.1 k/uL (0-0.2); Basophils % (A) 1 %; Eosinophils # (A) 0.1 k/uL (0-0.7); Eosinophils % (A) 1 %; HCT 52.3 % (39.0-53.0); HGB 16.7 gm/dL (13.0-17.5); Lymphocytes # (A) 5.7 k/uL (1.0-4.8); Lymphocytes % (A) 37 %; MCH 29.6 pg (25.0-35.0); MCHC 31.9 g/dL (31.0-37.0); MCV 92.6 fL (80.0-100.0); Mean Platelet Volume 8.8; Monocytes # (A) 0.7 k/uL (0-1.0); Monocytes % (A) 5 %; Neutrophils # (A) 8.4 k/uL (1.3-7.7); Neutrophils % (A) 55 %; Platelet Count 189 k/uL (150-450); RBC 5.65 m/uL (4.30-5.90); RDW 13.6 % (11.5-15.5); WBC 15.3 k/uL (3.8-10.6)
[2018-09-09 13:08] LABS: ALT 36 U/L (21-72); AST 17 U/L (17-59); Albumin 3.8 g/dL (3.5-5.0); Alkaline Phosphatase 65 U/L (38-126); Anion Gap 8 mmol/L; Blood Urea Nitrogen 20 mg/dL (9-20); Calcium 9.8 mg/dL (8.4-10.2); Carbon Dioxide 22 mmol/L (22-30); Chloride 109 mmol/L (98-107); Glucose 154 mg/dL (74-99); Magnesium 1.6 mg/dL (1.6-2.3); Potassium 4.8 mmol/L (3.5-5.1); Sodium 139 mmol/L (137-145); Total Bilirubin 0.5 mg/dL (0.2-1.3); Total Protein 6.4 g/dL (6.3-8.2)
[2018-09-09 13:18] LABS: INR 0.9 (<1.2); Prothrombin Time 9.9 sec (9.0-12.0)
[2018-09-09 13:21] LABS: Partial Thromboplastin Time 20.3 sec (22.0-30.0)
[2018-09-09] MEDS ORDERED: NITROGLYCERIN SL TABS 0.4 MG TAB SUBLINGUAL PRN (14:28)
[2018-09-09] MEDS ORDERED: ACETAMINOPHEN TAB 325 MG TAB PO PRN (16:18)
[2018-09-09] MEDS ORDERED: ONDANSETRON 4 MG/2 ML VIAL IVP PRN (16:18)
[2018-09-09] MEDS ORDERED: NALOXONE 0.4 MG/ML 1 ML VIAL IV PRN (16:18)
[2018-09-09] MEDS ORDERED: LORazepam 2 MG/ML INJ IV PRN ×3 (16:19)
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
[2018-09-09] MEDS: THIAMINE 100 MG TAB PO SCH (18:58)
[2018-09-09] MEDS: NITROGLYCERIN OINT 1 INCH/GM PACKET TOPICAL SCH (19:21)
[2018-09-09] MEDS ORDERED: ATORVASTATIN 40 MG TAB PO SCH (21:00)
[2018-09-09 23:28] VITALS: RESP 18
[2018-09-10] MEDS: NITROGLYCERIN OINT 1 INCH/GM PACKET TOPICAL SCH ×2 (01:36→05:28)
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
[2018-09-10 08:02] LABS: HCT 54.2 % (39.0-53.0); HGB 17.5 gm/dL (13.0-17.5); MCH 29.6 pg (25.0-35.0); MCHC 32.3 g/dL (31.0-37.0); MCV 91.8 fL (80.0-100.0); Mean Platelet Volume 8.5; Platelet Count 211 k/uL (150-450); RBC 5.91 m/uL (4.30-5.90); RDW 13.5 % (11.5-15.5); WBC 16.3 k/uL (3.8-10.6)
[2018-09-10 08:29] LABS: Cholesterol 301 mg/dL (<200); HDL Cholesterol 36 mg/dL (40-60); LDL Cholesterol,Calculated 221 mg/dL (0-99); Triglycerides 220 mg/dL (<150)
[2018-09-10] MEDS ORDERED: ASPIRIN 81 MG PO SCH (09:00)
[2018-09-10] MEDS ORDERED: ASPIRIN 325 MG TAB PO SCH (09:00)
[2018-09-10] MEDS ORDERED: METOPROLOL TARTRATE 25 MG TAB PO SCH (09:00)
[2018-09-10] MEDS ORDERED: LISINOPRIL 5 MG TAB PO SCH (09:00)
--- NOTE | 2018-09-10 09:46 | XR ---
EXAMINATION TYPE: XR chest 1V portable DATE OF EXAM: 09/10/2018 COMPARISON: Prior chest x-ray 09/09/2018 and chest x-ray 07/31/2016 HISTORY: Pneumonia TECHNIQUE: Single frontal view of the chest is obtained. FINDINGS: The aorta is dense. No evident airspace disease, pneumothorax, or pleural effusion. Cardia c mediastinal silhouette, pulmonary vascularity and perla within normal limits. Suspect some scarring at the level of the cardiac apex. IMPRESSION: No acute process.
[2018-09-10] MEDS: THIAMINE 100 MG TAB PO SCH ×2 (11:47→18:40)
[2018-09-10 16:02] VITALS: BP 118/72; PULSE 85; TEMP 98.2
--- NOTE | 2018-09-10 17:25 | P.DS ---
Providers Date of admission: 09/09/18 14:30 Expected date of discharge: 09/10/18 Attending physician: Hebert Rogel MD Consults: 09/09/18 14:28 Consult Physician Urgent Consulting Provider: [facility] Consult Reason/Comments: Chest pain Do you want consulting provider notified?: Yes Primary care physician: Stated None Hospital Course: Discharge Diagnosis: Atypical chest pain Cardiomyopathy with ejection fraction 45%, known Dyslipidemia Morbid obesity with BMI 39.2 History of coronary artery disease GERD Hospital Course: Patient is a 58-year-old male past medical history of myocardial infarction 5 with multiple prior stents, hypertension, dyslipidemia, and diet controlled diabetes mellitus who presented to the ER with complaints of chest pain. 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 In the ER he underwent an extensive evaluation. His initial vital signs are found within normal limits. Initial laboratory analysis showed slightly elevated white blood cell count at 15.3. Troponin was negative. EKG showed no acute ischemic changes. He was given aspirin and Nitropaste was placed. He was subsequently admitted to the observation unit for further monitoring. His WBC count is chronically elevated. Troponin remained negative. He refused stress test. His echo was consistent with his prior echos. He was cleared by cardiology for discharge. He will not take a statin medication as he has not tolerated them in the past and he believes they lead to his diabetes. He is willing to take niacin and gemfibriliz and these were prescribed for him. He is willing to start back on plavix and his other cardiac meds. He will establish with Dr. Mauro in [place] for a PCP and cardiology will call him with an appointment. Patient seen and examined at bedside. no chest pain, sob, or nausea. Up and walking in the hallways. Vital signs reviewed and stable. General: non toxic, no distress, appears at stated age, obese Derm: warm, dry Head: atraumatic, normocephalic, symmetric Eyes: EOMI, no lid lag, anicteric sclera Mouth: no lip lesion, poor dentition Cardiovascular: S1S2 reg, no murmur, positive posterior tibial pulse bilateral, Lungs: CTA bilateral, no rhonchi, no rales , no accessory muscle use Ext: no gross muscle atrophy, trace edema, no contractures Neuro: CN II-XI grossly intact, no focal neuro deficits Psych: Alert, oriented, appropriate affect A total of 25 minutes of time were spent preparing this complex discharge summary . Pertinent Studies: echo- per verbal report no changes CXR- no acute process. Patient Condition at Discharge: Stable Plan - Discharge Summary Discharge Rx Participant: No New Discharge Prescriptions: New Clopidogrel [Plavix] 75 mg PO DAILY #30 tablet Gemfibrozil [Lopid] 600 mg PO AC-BID #60 tablet Lisinopril [Zestril] 5 mg PO DAILY #30 tab Metoprolol Tartrate [Lopressor] 25 mg PO BID #60 tab Niacin [Niacin ER] 500 mg PO HS #30 tab.er.24h Continue Aspirin 81 mg PO DAILY #30 chewable Acetaminophen [Tylenol Extra Strength] 2,500 mg PO DAILY PRN PRN Reason: Pain Discharge Medication List Aspirin 81 mg PO DAILY #30 chewable 12/21/17 [Rx] Acetaminophen [Tylenol Extra Strength] 2,500 mg PO DAILY PRN 09/09/18 [History] Clopidogrel [Plavix] 75 mg PO DAILY #30 tablet 09/10/18 [Rx] Gemfibrozil [Lopid] 600 mg PO AC-BID #60 tablet 09/10/18 [Rx] Lisinopril [Zestril] 5 mg PO DAILY #30 tab 09/10/18 [Rx] Metoprolol Tartrate [Lopressor] 25 mg PO BID #60 tab 09/10/18 [Rx] Niacin [Niacin ER] 500 mg PO HS #30 tab.er.24h 09/10/18 [Rx] Follow up Appointment(s)/Referral(s): Rajesh Hanna MD [STAFF PHYSICIAN] - 2 Weeks (office will call pt early next week with an appt time and date.) Sudheer Mauro MD [REFERRING] - 1 Week None,Stated [Primary Care Provider] - 1-2 days Activity/Diet/Wound Care/Special Instructions: heart healthy low cholesterol diet activity as tolerated Discharge Disposition: HOME SELF-CARE
--- NOTE | 2018-09-10 18:25 | ECHOF ---
Referral Reason:cp MEASUREMENTS -------- HEIGHT: 170.2 cm WEIGHT: 113.4 kg BP: RVIDd: 2.3 cm (< 3.3) IVSd: 1.1 cm (0.6 - 1.1) LVIDd: 4.1 cm (3.9 - 5.3) LVPWd: 1.4 cm (0.6 - 1.1) IVSs: 2.0 cm LVIDs: 2.6 cm LVPWs: 2.1 cm LAESV Index (A-L): 18.36 ml/m Ao Diam: 2.9 cm (2.0 - 3.7) LA Diam: 3.6 cm (2.7 - 3.8) MV EXCURSION: 12.148 mm (> 18.000) MV EF SLOPE: 54 mm/s (70 - 150) EPSS: 1.2 cm MV E Randy: 0.99 m/s MV DecT: 182 ms MV A Randy: 1.11 m/s MV E/A Ratio: 0.89 RAP: 5.00 mmHg RVSP: 12.23 mmHg FINDINGS -------- Sinus rhythm. This was a technically difficult study with suboptimal views. The left ventricular size is normal. There is mild concentric left ventricular hypertrophy. Overa ll left ventricular systolic function is mildly impaired with, an EF between 45 - 50 %. Basal infer oseptal LV wall motion is hypokinetic. Mid inferoseptal LV wall motion is hypokinetic. The right ventricle is normal in size. The left atrial size is normal. The right atrial size is normal. Lumason used The aortic valve is trileaflet and appears structurally normal. There is trace mitral regurgitation. Trace tricuspid regurgitation present. The right ventricular systolic pressure, as measured by Dopp ler, is 12.23mmHg. The pulmonic valve was not well visualized. The aortic root size is normal. IVC Not well visulized. The pericardium is normal. CONCLUSIONS -------- 1. Sinus rhythm. 2. This was a technically difficult study with suboptimal views. 3. The left ventricular size is normal. 4. There is mild concentric left ventricular hypertrophy. 5. Overall left ventricular systolic function is mildly impaired with, an EF between 45 - 50 %. 6. Basal inferoseptal LV wall motion is hypokinetic. 7. Mid inferoseptal LV wall motion is hypokinetic. 8. The right ventricle is normal in size. 9. The left atrial size is normal. 10. The right atrial size is normal. 11. Lumason used 12. The aortic valve is trileaflet and appears structurally normal. 13. There is trace mitral regurgitation. 14. Trace tricuspid regurgitation present. 15. The right ventricular systolic pressure, as measured by Doppler, is 12.23mmHg. 16. The pulmonic valve was not well visualized. 17. The aortic root size is normal. 18. IVC Not well visulized. 19. The pericardium is normal. RUBBER ATTACHER: Mallory Ferreira RDCS
== END 2018-09-10 18:45 | disposition home or self-care (01) ==
LOC: EC 11:33 → 1SOBS 14:30
PROVIDERS: ADMIT Family Medicine; ATTEND Family Medicine
DX: R07.89 Other chest pain (principal); I42.9 Cardiomyopathy, unspecified; E78.5 Hyperlipidemia, unspecified; K21.9 Gastro-esophageal reflux disease without esophagitis; I25.10 Atherosclerotic heart disease of native coronary artery without angina pectoris; J44.9 Chronic obstructive pulmonary disease, unspecified; I10 Essential (primary) hypertension; E78.00 Pure hypercholesterolemia, unspecified; D72.829 Elevated white blood cell count, unspecified; M19.90 Unspecified osteoarthritis, unspecified site; G47.33 Obstructive sleep apnea (adult) (pediatric); M54.9 Dorsalgia, unspecified; G89.29 Other chronic pain; G43.909 Migraine, unspecified, not intractable, without status migrainosus; F17.200 Nicotine dependence, unspecified, uncomplicated; R61 Generalized hyperhidrosis; R53.83 Other fatigue; F10.10 Alcohol abuse, uncomplicated; R10.13 Epigastric pain; R20.0 Anesthesia of skin; Z91.14 Patient's other noncompliance with medication regimen; E66.01 Morbid (severe) obesity due to excess calories; Z68.39 Body mass index [BMI] 39.0-39.9, adult; F17.210 Nicotine dependence, cigarettes, uncomplicated; Z79.82 Long term (current) use of aspirin; Z91.048 Other nonmedicinal substance allergy status; Z88.5 Allergy status to narcotic agent; Z91.040 Latex allergy status; I25.2 Old myocardial infarction; Z87.01 Personal history of pneumonia (recurrent); Z86.14 Personal history of Methicillin resistant Staphylococcus aureus infection; Z87.81 Personal history of (healed) traumatic fracture; Z95.5 Presence of coronary angioplasty implant and graft; Z82.49 Family history of ischemic heart disease and other diseases of the circulatory system; Z82.0 Family history of epilepsy and other diseases of the nervous system; Z82.3 Family history of stroke
CPT/HCPCS: 99285; 36415; 93005; 80061; 80053; 83690; 83735; 84484; 85025; 85027; 85610; 85730; 71045; 71046; G0378 ×2; C8929; Q9950; 93306

== ENCOUNTER 2019-04-19 12:05 | Emergency (ER) | payer MEDICARE, OTHER ==
[2019-04-19 12:12] VITALS: RESP 18; TEMP 97.5
[2019-04-19] MEDS ORDERED: IPRATROPIUM-ALBUTEROL 3 ML NEB INHALATION STA (12:34)
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
[2019-04-19 12:44] VITALS: BP 153/102
[2019-04-19 12:58] VITALS: PULSE 88
== END 2019-04-19 12:49 | disposition home or self-care (01) ==
LOC: EC 12:05
DX: L03.115 Cellulitis of right lower limb (principal); L03.116 Cellulitis of left lower limb; R06.2 Wheezing; Z76.0 Encounter for issue of repeat prescription; E11.9 Type 2 diabetes mellitus without complications; I25.119 Atherosclerotic heart disease of native coronary artery with unspecified angina pectoris; I25.2 Old myocardial infarction; F17.200 Nicotine dependence, unspecified, uncomplicated; Z88.5 Allergy status to narcotic agent; Z91.040 Latex allergy status; Z91.048 Other nonmedicinal substance allergy status; Z86.14 Personal history of Methicillin resistant Staphylococcus aureus infection; Z87.01 Personal history of pneumonia (recurrent); Z87.09 Personal history of other diseases of the respiratory system; Z95.5 Presence of coronary angioplasty implant and graft
CPT/HCPCS: 94640; 99283

== ENCOUNTER 2019-07-22 17:15 | Observation (INO) | payer MEDICARE ==
[2019-07-22] MEDS ORDERED: SODIUM CHLORIDE 0.9% 1,000 ML IV STA (17:25)
[2019-07-22 18:01] LABS: Basophils # (A) 0.2 k/uL (0-0.2); Basophils % (A) 1 %; Eosinophils # (A) 0.2 k/uL (0-0.7); Eosinophils % (A) 1 %; HCT 52.9 % (39.0-53.0); HGB 17.2 gm/dL (13.0-17.5); Lymphocytes % (A) 37 %; MCH 28.6 pg (25.0-35.0); MCHC 32.4 g/dL (31.0-37.0); MCV 88.2 fL (80.0-100.0); Mean Platelet Volume 9.4; Monocytes # (A) 0.8 k/uL (0-1.0); Monocytes % (A) 5 %; Neutrophils # (A) 8.6 k/uL (1.3-7.7); Neutrophils % (A) 53 %; Platelet Count 202 k/uL (150-450); RDW 13.9 % (11.5-15.5); WBC 16.1 k/uL (3.8-10.6)
[2019-07-22 18:09] LABS: ALT 33 U/L (4-49); AST 24 U/L (17-59); African American GFR (CKD) >90 (>60 ml/min/1.73 sqM); Alkaline Phosphatase 89 U/L (38-126); Anion Gap 8 mmol/L; Blood Urea Nitrogen 19 mg/dL (9-20); Calcium 9.3 mg/dL (8.4-10.2); Carbon Dioxide 23 mmol/L (22-30); Chloride 107 mmol/L (98-107); Glucose 215 mg/dL (74-99); Non-African American GFR(CKD) >90 (>60 ml/min/1.73 sqM); Potassium 4.6 mmol/L (3.5-5.1); Sodium 138 mmol/L (137-145); Total Bilirubin 0.4 mg/dL (0.2-1.3); Total Protein 6.8 g/dL (6.3-8.2)
--- NOTE | 2019-07-22 18:09 | XR ---
EXAMINATION TYPE: XR chest 2V DATE OF EXAM: 07/22/2019 COMPARISON: 09/10/2018 HISTORY: Chest pain TECHNIQUE: FINDINGS: There is no heart failure nor confluent pneumonic infiltrate. There is slight coarsening of interstitial markings. There is no pleural effusion. There is some spurring in the thoracic spine. T horacic aorta is atheromatous. There are no hilar masses. IMPRESSION: Mild pulmonary fibrotic changes. Normal heart. No significant change.
[2019-07-22 18:27] LABS: Poikilocytosis (M) Present
[2019-07-22 18:28] LABS: D-Dimer 0.34 mg/L FEU (<0.60); INR 0.9 (<1.2); Prothrombin Time 9.6 sec (9.0-12.0)
[2019-07-22 18:33] LABS: Partial Thromboplastin Time 21.2 sec (22.0-30.0)
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
[2019-07-22] MEDS ORDERED: NITROGLYCERIN SL TABS 0.4 MG TAB SUBLINGUAL PRN (19:19)
[2019-07-22] MEDS ORDERED: HEPARIN SODIUM,PORCINE 5,000 UNIT/ML 1 ML VIAL IV PRN (19:19)
[2019-07-22] MEDS ORDERED: HEPARIN SODIUM,PORCINE 5,000 UNIT/ML 1 ML VIAL IV ONE (19:19)
[2019-07-22] MEDS: HEPARIN SOD,PORK IN 0.45% NACL 25,000 UNIT in 0.45% NACL 1 250ML.BAG IV SCH (20:05)
[2019-07-22] MEDS: ASPIRIN 81 MG PO STA ×2 (20:08→20:09)
[2019-07-22] MEDS: SODIUM CHLORIDE 0.9% 1,000 ML IV SCH (20:09)
[2019-07-22] MEDS: IPRATROPIUM-ALBUTEROL 3 ML NEB INHALATION PRN (20:16)
[2019-07-22] MEDS: METOPROLOL TARTRATE 25 MG TAB PO SCH (22:10)
[2019-07-22] MEDS: guaiFENesin 600 MG TABLET.ER PO SCH (22:45)
[2019-07-23 02:57] LABS: Mean Platelet Volume 9.5; Platelet Count 175 k/uL (150-450)
[2019-07-23 03:08] LABS: Cholesterol 319 mg/dL (<200); HDL Cholesterol 36 mg/dL (40-60); LDL Cholesterol,Calculated 224 mg/dL (0-99); Triglycerides 297 mg/dL (<150)
[2019-07-23] MEDS: HEPARIN SOD,PORK IN 0.45% NACL 25,000 UNIT in 0.45% NACL 1 250ML.BAG IV SCH (03:30)
[2019-07-23] MEDS: IPRATROPIUM-ALBUTEROL 3 ML NEB INHALATION PRN (07:21)
[2019-07-23] MEDS: SODIUM CHLORIDE 0.9% 1,000 ML IV SCH (08:42)
[2019-07-23] MEDS: guaiFENesin 600 MG TABLET.ER PO SCH (08:42)
[2019-07-23] MEDS: SPIRONOLACTONE 25 MG TAB PO SCH (08:42)
[2019-07-23] MEDS: METOPROLOL TARTRATE 25 MG TAB PO SCH ×2 (08:42→20:38)
[2019-07-23] MEDS ORDERED: ASPIRIN 325 MG TAB PO SCH (09:00)
[2019-07-23] MEDS ORDERED: LOSARTAN 25 MG TAB PO SCH (09:00)
[2019-07-23] MEDS ORDERED: DIPYRIDAMOLE IV ONE (10:09)
[2019-07-23] MEDS ORDERED: SODIUM CHLORIDE 0.9% IV ONE (10:09)
[2019-07-23] MEDS ORDERED: AMINOPHYLLINE 500 MG/20 ML VIAL IV PRN (10:09)
[2019-07-23] MEDS ORDERED: CAFFEINE CITRATE 60 MG/3 ML VIAL IV PRN (10:09)
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
[2019-07-23] MEDS ORDERED: AMINOPHYLLINE 500 MG/20 ML VIAL IV ONE (12:23)
--- NOTE | 2019-07-23 13:00 | ECHOF ---
Referral Reason:cp MEASUREMENTS -------- HEIGHT: 167.6 cm WEIGHT: 117.9 kg BP: 155/85 RVIDd: 3.2 cm (< 3.3) IVSd: 1.6 cm (0.6 - 1.1) LVIDd: 4.3 cm (3.9 - 5.3) LVPWd: 1.6 cm (0.6 - 1.1) IVSs: 1.7 cm LVIDs: 3.7 cm LVPWs: 2.0 cm LA Diam: 3.7 cm (2.7 - 3.8) LAESV Index (A-L): 23.58 ml/m Ao Diam: 2.7 cm (2.0 - 3.7) MV EXCURSION: 16.541 mm (> 18.000) MV EF SLOPE: 135 mm/s (70 - 150) EPSS: 1.2 cm MV E Randy: 0.93 m/s MV DecT: 135 ms MV A Randy: 1.09 m/s MV E/A Ratio: 0.85 TAPSE: 22.34 mm FINDINGS -------- Sinus rhythm. This was a technically difficult study with suboptimal views. The left ventricular size is normal. There is moderate concentric left ventricular hypertrophy. O verall left ventricular systolic function is mildly impaired with, an EF between 45 - 50 %. Basal p osterior LV wall motion is hypokinetic. Mid posterior LV wall motion is hypokinetic. The right ventricle is normal in size. Normal LA size by volume 22+/-6 ml/m2. The right atrium is normal in size. Interatrial and interventricular septum intact. There is mild aortic valve sclerosis. Moderate mitral regurgitation is present. The tricuspid valve was not well visualized. The pulmonic valve was not well visualized. The aortic root size is normal. IVC Not well visulized. There is a trivial pericardial effusion present. CONCLUSIONS -------- 1. Sinus rhythm. 2. This was a technically difficult study with suboptimal views. 3. The left ventricular size is normal. 4. There is moderate concentric left ventricular hypertrophy. 5. Overall left ventricular systolic function is mildly impaired with, an EF between 45 - 50 %. 6. Basal posterior LV wall motion is hypokinetic. 7. Mid posterior LV wall motion is hypokinetic. 8. The right ventricle is normal in size. 9. Normal LA size by volume 22+/-6 ml/m2. 10. The right atrium is normal in size. 11. Interatrial and interventricular septum intact. 12. There is mild aortic valve sclerosis. 13. Moderate mitral regurgitation is present. 14. The tricuspid valve was not well visualized. 15. The pulmonic valve was not well visualized. 16. The aortic root size is normal. 17. IVC Not well visulized. 18. There is a trivial pericardial effusion present. OPTICIAN: BUD Aly
--- NOTE | 2019-07-23 13:30 | NM ---
EXAMINATION TYPE: NM stress persantine cardiolit DATE OF EXAM: 07/23/2019 COMPARISON: NONE HISTORY: Chest pain TECHNIQUE: After the intravenous administration of 10.36 mCi Tc 99m Sestamibi - Cardiolite resting S PECT images acquired 45 minutes post injection. The patient received 67.2 mg Persantine, 26.8 mCi Tc 99m Sestamibi - Stress images obtained 30 minute s post injection FINDINGS: Review of stress and rest SPECT images demonstrates large matched defect involving the inferior and l ateral wall the myocardium with corresponding wall motion abnormality.. Gated analysis shows normal wall motion with an estimated left ventricular ejection fraction of 34 %. IMPRESSION: 1. Large fixed defect lateral and inferior wall the myocardium compatible with previous infarction. R esting ejection fraction of only 34% with abnormal wall motion. No definite stress-induced reversible perfusion defect.
[2019-07-23] MEDS ORDERED: LOSARTAN 25 MG TAB PO STA (13:59)
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
[2019-07-23 15:35] LABS: HCT 52.8 % (39.0-53.0); MCH 28.8 pg (25.0-35.0); MCHC 32.2 g/dL (31.0-37.0); MCV 89.5 fL (80.0-100.0); Platelet Count 202 k/uL (150-450); RDW 13.7 % (11.5-15.5); WBC 19.2 k/uL (3.8-10.6)
[2019-07-23] MEDS: FAMOTIDINE 20 MG TAB PO SCH (20:46)
[2019-07-23] MEDS: HEPARIN SODIUM,PORCINE 5,000 UNIT/ML 1 ML VIAL SQ SCH (20:46)
[2019-07-23] MEDS ORDERED: FAMOTIDINE 20 MG/2 ML VIAL IV SCH (21:00)
[2019-07-23] MEDS ORDERED: ATORVASTATIN 80 MG TAB PO SCH (21:00)
[2019-07-23] MEDS: ACETAMINOPHEN TAB 325 MG TAB PO PRN (23:01)
[2019-07-23] MEDS ORDERED: ASPIRIN 81 MG PO STA (23:09)
[2019-07-24 07:28] VITALS: RESP 18
[2019-07-24] MEDS: SPIRONOLACTONE 25 MG TAB PO SCH (08:10)
[2019-07-24] MEDS: FAMOTIDINE 20 MG TAB PO SCH (08:10)
[2019-07-24] MEDS: METOPROLOL TARTRATE 25 MG TAB PO SCH (08:10)
[2019-07-24] MEDS: guaiFENesin 600 MG TABLET.ER PO SCH (08:10)
[2019-07-24] MEDS: HEPARIN SODIUM,PORCINE 5,000 UNIT/ML 1 ML VIAL SQ SCH (08:12)
[2019-07-24 08:20] LABS: Basophils # (A) 0.1 k/uL (0-0.2); Basophils % (A) 1 %; Eosinophils # (A) 0.2 k/uL (0-0.7); Eosinophils % (A) 1 %; HCT 52.5 % (39.0-53.0); HGB 17.2 gm/dL (13.0-17.5); Lymphocytes % (A) 41 %; MCH 29.5 pg (25.0-35.0); MCHC 32.7 g/dL (31.0-37.0); MCV 90.1 fL (80.0-100.0); Mean Platelet Volume 9.9; Monocytes # (A) 0.7 k/uL (0-1.0); Monocytes % (A) 5 %; Neutrophils # (A) 7.3 k/uL (1.3-7.7); Neutrophils % (A) 50 %; Platelet Count 198 k/uL (150-450); RBC 5.83 m/uL (4.30-5.90); RDW 13.7 % (11.5-15.5); WBC 14.7 k/uL (3.8-10.6)
[2019-07-24] MEDS ORDERED: ASPIRIN 81 MG PO SCH (09:00)
[2019-07-24] MEDS ORDERED: LOSARTAN 50 MG TAB PO SCH (09:00)
[2019-07-24] MEDS: ACETAMINOPHEN TAB 325 MG TAB PO PRN (11:25)
[2019-07-24 11:28] VITALS: BP 131/80; PULSE 52; TEMP 97.3
--- NOTE | 2019-07-24 13:23 | EST ---
EXERCISE STRESS AGE: 59 SEX: M HT: 66" WT: 260 PROTOCOL: Persantine Cardiolite Stress Test HEART RATE REST: 75 BLOOD PRESSURE REST: 153/78 MAXIMUM HEART RATE ACHIEVED: 89 MAXIMUM BLOOD PRESSURE: 154/98 85% MPHR: 125 100% MPHR: 159 INDICATIONS: Chest pain. CLINICAL INFORMATION: A Lexiscan nuclear study was performed. Peak heart rate of 89 was achieved. Maximum blood pressure of 154/98 mmHg was noted. Resting EKG shows normal sinus rhythm with normal AK interval and QRS duration and normal ST-T waves. No ST-segment depression suggestive of ischemia is noted. FINAL IMPRESSION: There is no EKG evidence of ischemia during Lexiscan injection. The results of the nuclear study will follow. MMODL / IJN: [id number] /
--- NOTE | 2019-07-24 14:53 | US ---
EXAMINATION TYPE: US venous doppler duplex LE BI DATE OF EXAM: 07/24/2019 2:24 PM COMPARISON: NONE CLINICAL HISTORY: Rule out DVT. Leg infection SIDE PERFORMED: Bilateral TECHNIQUE: The lower extremity deep venous system is examined utilizing real time linear array sonog krista with graded compression, doppler sonography and color-flow sonography. VESSELS IMAGED: External Iliac Vein (EIV) Common Femoral Vein Deep Femoral Vein Greater Saphenous Vein * Femoral Vein Popliteal Vein Small Saphenous Vein * Proximal Calf Veins (* superficial vessels) 2 large lymph nodes noted left side, groin 1 = 2.8 x 2.4 x 1.9 cm 2 = 1.4 x 1.2 x 0.9 cm Right Leg: Negative for DVT1. Left Leg: Negative for DVT Spontaneous flow and compressibility documented. IMPRESSION: 1. No diagnostic evidence of DVT 2. Left groin lymphadenopathy. Correlate clinically.
[2019-07-24 15:11] LABS: HCT 50.9 % (39.0-53.0); HGB 17.2 gm/dL (13.0-17.5); MCH 29.9 pg (25.0-35.0); MCHC 33.7 g/dL (31.0-37.0); MCV 88.6 fL (80.0-100.0); Mean Platelet Volume 9.5; Platelet Count 188 k/uL (150-450); RBC 5.74 m/uL (4.30-5.90); RDW 13.7 % (11.5-15.5); WBC 16.3 k/uL (3.8-10.6)
--- NOTE | 2019-07-24 16:42 | P.DS ---
Providers Date of admission: 07/22/19 19:19 Attending physician: Willy Waters Consults: 07/22/19 19:19 Consult Physician Urgent Consulting Provider: Buddy Lee Consult Reason/Comments: cp Do you want consulting provider notified?: Yes Primary care physician: Stated None Hospital Course: Diagnoses: -Stable angina, stress test shows fixed defect but no reversible ischemia. -Mild cellulitis on the left lateral leg with small wound. -Musculoskeletal pain around the left scapula secondary to sudden movements -Chronic systolic heart failure with ejection fraction of 34%. No acute exacerbation -Chronic leukocytosis since 2016 -Noncompliance -COPD, not acute exacerbation -Diabetes mellitus -GERD -Hyperlipidemia -Hypertension -osteoarthritis -chronic back pain hospital course: This is a pleasant 59 years old male with past medical history of COPD, diabetes mellitus, GERD, hyperlipidemia, hypertension, osteoarthritis, chronic back pain, obesity, coronary artery disease status post stent. He presents because of chest pain for about 2 weeks on and off, patient states that chest pain comes on after exertion and uses done after rest. Sometimes he feels tired rather than chest pain. He is been evaluated by emt i/85 and he underwent stress test which showed a large fixed defect of the lateral and inferior wall compatible with previous infarction, resting ejection fraction of 34% but no stress induced reversible perfusion defect On admission patient has leukocytosis of 16 and 19 K, after ceftriaxone is coming down to 14 K. It is secondary to wound in his left lateral leg with no purulent discharge but minimal surrounding erythema and tenderness. The wound is about 2 inches in diameter and 1 inch in width, the infection it looks mild and responding quickly to antibiotic. Patient will be discharged a short course of antibiotics with a recommendation for close outpatient follow-up Also patient complaining of from a pulled muscle at the level of the left scapula from behind, which happens after he was carrying a cat inn his hand and threw it away. He denies dyspnea or coughing. No abdominal pain. No leg pain. No headache. No weakness D-dimer is negative at 0.34. Serial troponin are negative. Chest x-ray: No acute process, mild fibrotic changes. Doppler of the lower extremities is negative for DVT Problems and management plan were discussed with the patient and he verbalized understanding and acceptance Patient was found stable and can be discharged home however he needs follow-up as an outpatient. Patient was instructed to follow up with PCP within one week and patient agrees. Patient agrees to follow up with new PCP Dr. Hunter, however due to transportation issue he was appointments on August 11 although he was instructed for closer follow-up. i tried to discuss with the patient for sooner appointment, he got upset " do not put pressure on me" Also patient was instructed to follow up with his emt i/85 in 1-2 weeks and he agrees. Patient wants to make his own appointment with emt i/85. Medications discussed with the patient, he does not want spironolactone as he states it made him sick last time, however he agrees with losartan, metoprolol and antibiotics. Patient stated that he is going to go and check his potassium level and creatinine within 7-10 days after starting losartan as he was instructed in nearby medical facility close to where he lives Gen: patient is a AAOx3, no distress. Obese CVS: S1-S2, RRR, no murmur Lungs: B/L CTA, no wheezing Abdomen: soft, no distention, no tenderness, positive bowel sounds Extremity: no leg edema or induration. Left lateral leg wound, about 2 inches in length and 1 inch in width with minimal surrounding erythema and tenderness, no fluctuating collection is noted around it. Gait: At baseline Neurology:Cranial nerves grossly intact, strength is 5/5 in all extremities. No sensory loss Time spent more than 35 minutes Patient Condition at Discharge: Undetermined Plan - Discharge Summary Discharge Rx Participant: No New Discharge Prescriptions: New Losartan [Cozaar] 50 mg PO DAILY #30 tab Cephalexin [Keflex] 250 mg PO Q8HR 2 Days #6 capsule Metoprolol Tartrate [Lopressor] 25 mg PO BID #60 tab Nitroglycerin Sl Tabs [Nitrostat] 0.4 mg SUBLINGUAL Q5M PRN #30 tab PRN Reason: Chest Pain Continue Aspirin 81 mg PO DAILY Acetaminophen Tab [Tylenol] 1,000 mg PO Q6H PRN PRN Reason: Fever And/ Or Pain Discharge Medication List Acetaminophen Tab [Tylenol] 1,000 mg PO Q6H PRN 07/22/19 [History] Aspirin 81 mg PO DAILY 07/22/19 [History] Cephalexin [Keflex] 250 mg PO Q8HR 2 Days #6 capsule 07/24/19 [Rx] Losartan [Cozaar] 50 mg PO DAILY #30 tab 07/24/19 [Rx] Metoprolol Tartrate [Lopressor] 25 mg PO BID #60 tab 07/24/19 [Rx] Nitroglycerin Sl Tabs [Nitrostat] 0.4 mg SUBLINGUAL Q5M PRN #30 tab 07/24/19 [Rx] Follow up Appointment(s)/Referral(s): Henry Rebollar MD [STAFF PHYSICIAN] - 10 Days Isi Hurley MD [REFERRING] - 08/11/20 1:00 pm (follow up with Dr. Hurley 4th 1pm) None,Stated [Primary Care Provider] - 1-2 days Patient Instructions/Handouts: Chest Pain (ED) Discharge Disposition: HOME WITH HOME HEALTH SERVICES
== END 2019-07-24 17:28 | disposition home health service (06) ==
LOC: EC 17:15 → 1SOBS 19:19
PROVIDERS: ADMIT Hospitalist; ATTEND Hospitalist
DX: I25.118 Atherosclerotic heart disease of native coronary artery with other forms of angina pectoris (principal); L03.116 Cellulitis of left lower limb; S81.802A Unspecified open wound, left lower leg, initial encounter; M25.512 Pain in left shoulder; I11.0 Hypertensive heart disease with heart failure; I50.22 Chronic systolic (congestive) heart failure; Z91.19 Patient's noncompliance with other medical treatment and regimen; J44.9 Chronic obstructive pulmonary disease, unspecified; E11.9 Type 2 diabetes mellitus without complications; K21.9 Gastro-esophageal reflux disease without esophagitis; E78.5 Hyperlipidemia, unspecified; M19.90 Unspecified osteoarthritis, unspecified site; G89.29 Other chronic pain; M54.9 Dorsalgia, unspecified; I25.2 Old myocardial infarction; G47.33 Obstructive sleep apnea (adult) (pediatric); R20.0 Anesthesia of skin; G43.809 Other migraine, not intractable, without status migrainosus; I25.5 Ischemic cardiomyopathy; R59.0 Localized enlarged lymph nodes; J84.10 Pulmonary fibrosis, unspecified; I08.0 Rheumatic disorders of both mitral and aortic valves; F17.200 Nicotine dependence, unspecified, uncomplicated; E66.9 Obesity, unspecified; Z68.41 Body mass index [BMI] 40.0-44.9, adult; Z95.5 Presence of coronary angioplasty implant and graft; Z79.82 Long term (current) use of aspirin; Z91.09 Other allergy status, other than to drugs and biological substances; Z91.040 Latex allergy status; Z88.5 Allergy status to narcotic agent; Z86.2 Personal history of diseases of the blood and blood-forming organs and certain disorders involving the immune mechanism; Z87.01 Personal history of pneumonia (recurrent); Z87.09 Personal history of other diseases of the respiratory system; Z87.81 Personal history of (healed) traumatic fracture; Z87.828 Personal history of other (healed) physical injury and trauma; Z86.14 Personal history of Methicillin resistant Staphylococcus aureus infection; Z98.890 Other specified postprocedural states; Z82.49 Family history of ischemic heart disease and other diseases of the circulatory system; Z82.3 Family history of stroke; Z82.0 Family history of epilepsy and other diseases of the nervous system; X58.XXXA Exposure to other specified factors, initial encounter
CPT/HCPCS: 93005 ×3; 96365; 96366 ×2; 96367; 96376 ×2; 99291; 36415; 94640; 94760; 93017; 85379; 83880; 80061; 80053; 83690; 83735; 84484 ×2; 85025 ×2; 85027 ×2; 85049; 85610; 85730 ×2; 71046; 93970; 78452; G0378 ×3; C8929; A9500; J1644 ×4; J0280; J0696; J1245; Q9950; 93306